=== PATIENT | female | born 1975 | race Caucasian/White ===

== ENCOUNTER 2023-02-08 22:07 | Emergency (ER) | payer MEDICAID ==
[~2023-02-08] VITALS: Ht 162.6 cm; Wt 115.7 kg
[2023-02-08 22:26] VITALS: BP_SYST 111; PULSE 100; TEMP 96.9; O2SAT 98
[2023-02-08 23:16] VITALS: BP_SYST 111; PULSE 100; TEMP 96.9; O2SAT 98
== END 2023-02-08 23:16 | disposition home or self-care (01) ==
LOC: SED 22:07
DX: L66.2 Folliculitis decalvans (principal); R21 Rash and other nonspecific skin eruption; Z79.899 Other long term (current) drug therapy
CPT/HCPCS: 99282